=== PATIENT | male | born 1980 | race Caucasian/White ===

== ENCOUNTER 2017-07-30 15:54 | Inpatient (IN) ==
[2017-07-30] MEDS ORDERED: VANCOMYCIN 1 GM/NS 1 GM/250 ML IVPB IV ONE (16:03)
[2017-07-30 16:46] LABS: MANUAL DIFF NEEDED? NO
[2017-07-30 16:51] LABS: BASO% 0.1 % (0.0-0.8); EOS# 0.07 X1000 (0.0-0.7); EOS% 0.5 % (0.0-10.0); HEMATOCRIT 38.8 % (42.0-52.0); HEMOGLOBIN 13.1 g/dL (14.0-18.0); IMM GRAN# 0.02 X1000 (0.0-0.04); IMM GRAN% 0.2 % (0.0-0.5); LYMPH# 3.09 X1000 (1.2-3.4); LYMPH% 24.2 % (20.5-51.1); MCH 31.5 PG (27-31); MCHC 33.8 g/dL (33-37); MCV 93.3 FL (81-99); MONO% 7.1 % (1.7-9.3); MPV 9.3 FL (7.4-10.4); NEUT% 67.9 % (42.2-75.2); PLT 277 X1000 (130-400); RBC 4.16 XMIL (4.7-6.1)
[2017-07-30] MEDS ORDERED: NORCO-10 PO ONE (16:56)
[2017-07-30] MEDS ORDERED: ZOFRAN ODT PO ONE (16:56)
[2017-07-30 17:08] LABS: AGAP 15; ALBUMIN 3.9 g/dL (3.5-5.0); ALKALINE PHOSPHATASE 71 U/L (32-122); BUN 9 mg/dL (8-22); CALCIUM 8.8 mg/dL (8.8-10.2); CHLORIDE 93 mmol/L (98-107); COSMO 265; GOT 11 U/L (10-34); GPT 7 U/L (10-44); POTASSIUM 3.6 mmol/L (3.5-5.1); SODIUM 133 mmol/L (136-145); TCO2 25 mmol/L (25-35); TOTAL PROTEIN 7.3 g/dL (6.3-8.3)
--- NOTE | 2017-07-30 17:24 | PROVIDER DOCUMENTATION ---
This chart was entered by Chela Cantu Scribe, acting as scribe for Hadley Hernandez PA. HPI-Rash/Wound/ReCheck - General Chief Complaint: Extremity Pain Stated Complaint: LT HAND/ARM INFECTION Time Seen by Provider: 07/30/17 15:59 Source: patient Allergies/Adverse Reactions: Allergies Allergy/AdvReac Type Severity Reaction Status Date / Time ciprofloxacin [From Cipro] Allergy Unknown Verified 07/30/17 16:40 ciprofloxacin HCl * Allergy Unknown Verified 07/30/17 16:40 [From Cipro] doxycycline Allergy DIARRHEA Verified 07/30/17 16:40 erythromycin base Allergy Unknown Verified 07/30/17 16:40 Penicillins Allergy RASH Verified 07/30/17 16:40 Home Medications: Home Medication List Medication Instructions Recorded Confirmed Last Taken Type Sulfamethoxazole/Trimethoprim 1 tab PO DAILY 07/30/17 07/30/17 07/30/17 History [Bactrim Ds Tablet] - History of Present Illness-Dermatology Nature of Presenting Problem: Patient is a 36 year old male who presents in the ED with complaints of cat bite /scratch. He states he was playing with a cat two weeks ago when he felt a puncture to his left hand, and states he is unsure if he was bitten or scratched by the cat. He also states he has had increasing swelling and redness to the site of the wound since onset, and states he went to a doctor's office prior to arrival in ED but was instructed to come to the ED. He reports he has had streaking up to his left armpit. Location: reports: upper extremity (left hand) Quality: reports: painful Severity: reports: moderate, severe Onset/Duration: reports: abrupt (2 weeks ago) Timing: reports: still present, changing over time, getting worse Context/Associated Symptoms: reports: other (redness/swelling/pain at site of cat bite) Identifiable cause?: Yes Exposure: denies: unknown cause, allergen exposure, enviromental allergen exposure, common food allergen exposure, illness exposure, irritant gases exposure, new medication, mold exposure, smoke exposure, toxic exposure, other Modifying Factors: worse with: antihistamine, calamine lotion, prednisone, scratching, topical steriods, other Locality of Occurance: Home Similar Symptoms Previously?: No Recently seen or treated by another doctor?: No Review of Systems - Adult - REVIEW OF SYSTEMS - ADULT Constitutional: reports: no symptoms reported Eyes: reports: no symptoms reported Ears, Nose, Mouth & Throat: reports: no symptoms reported Cardiovascular: reports: no symptoms reported Respiratory: reports: no symptoms reported Gastrointestinal: reports: no symptoms reported Genitourinary: reports: no symptoms reported Musculoskeletal: reports: no symptoms reported Integumentary: reports: see HPI, other (cat bite/scratch to left hand with swelling/erythema/streaking) Neurological: reports: no symptoms reported Psychiatric: reports: no symptoms reported Endocrine: reports: no symptoms reported Hematologic/Lymphatic: reports: no symptoms reported Allergic/Immunologic: reports: no symptoms reported All Other Systems: Reviewed and Negative Past History - Adult - PAST MEDICAL HISTORY-ADULT Review of Records: reports: Nursing Assessment Review, Medications Reviewed Major Childhood Illnesses: reports: denies history Cardiovascular: reports: denies history Respiratory: reports: asthma Gastrointestinal: reports: denies history Obstetrical/Gynecological: reports: denies history Genitourinary: reports: denies history Musculoskeletal: reports: denies history Neurological: reports: denies history Psychiatric: reports: denies history Endocrine/Immune: reports: denies history Other Conditions: reports: denies history - PRIOR SURGERIES/PROCEDURES Surgical/Procedure History: reports: other (dental extractions) - IMMUNIZATION STATUS Childhood Immunizations: See Nurse Assessment Flu Vaccine: See Nurse Assessment - FAMILY HISTORY Family History: reviewed, not pertinent - SOCIAL HISTORY Smoking: cigarettes, less than 1 pack/day Substance Use: none/never Alcohol Use Frequency: never Living Situation: family Physical Exam-General - PHYSICAL EXAM-ADULT Initial Vital Signs Reviewed: Yes - CONSTITUTIONAL General Appearance: alert, no apparent distress - EYES Eyes: PERRL/EOMI, pink conjunctivae - HEAD, EARS, NOSE, MOUTH & THROAT HENMT: normocephalic/atraumatic, moist mucous membranes - NECK Neck: full range of motion, supple - RESPIRATORY Respiratory: chest non-tender, lungs clear, normal breath sounds, no pleuratic chest pain, no respiratory distress, no accessory muscle use - CARDIOVASCULAR Cardiovascular: regular rate, rhythm, no edema, no gallop, no JVD, no murmur - GASTROINTESTINAL (ABDOMEN) Abdominal Exam: non tender, soft, no organomegaly, no pulsatile mass - LYMPHATIC Lymphatic: no adenopathy - MUSCULOSKELETAL Back Exam: normal inspection, no CVA tenderness, no vertebral tenderness Extremity: normal range of motion, non-tender, normal gait, normal inspection - SKIN Integumentary: normal color, normal turgor, warm/dry, other (left dorsal second finger first joint with significant swelling, erythema, and streaking from site extending up to patient's left axilla area) - NEUROLOGIC Neurologic: grossly normal, no motor/sensory deficits - PSYCHIATRIC Psych/Mental Status: normal mood/affect, oriented x 3 Progress - PLAN OF CARE/RESULTS Progress/Plan/Lab Results: Vital Signs - 8 hr 07/30/17 15:57 Temperature 99.6 F Pulse Rate 86 Respiratory Rate 16 Blood Pressure 128/74 O2 Sat by Pulse Oximetry 98 Laboratory Results - last 24 hr 07/30/17 07/30/17 16:33 16:33 WBC 12.76 H RBC 4.16 L Hgb 13.1 L Hct 38.8 L MCV 93.3 MCH 31.5 H MCHC 33.8 RDW Std Deviation 13.1 Plt Count 277 MPV 9.3 Immature Gran % (Auto) 0.2 Neut % (Auto) 67.9 Lymph % (Auto) 24.2 Rush % (Auto) 7.1 Eos % (Auto) 0.5 Baso % (Auto) 0.1 Immature Gran # (Auto) 0.02 Neut # (Auto) 8.67 H Lymph # (Auto) 3.09 Rush # (Auto) 0.90 H Eos # (Auto) 0.07 Baso # (Auto) 0.01 Sodium 133 L Potassium 3.6 Chloride 93 L Carbon Dioxide 25 Anion Gap 15 BUN 9 Creatinine 0.7 Estimated GFR/1.73 m2 > 60 BUN/Creatinine Ratio 13 Glucose 95 Calculated Osmolality 265 Calcium 8.8 Total Bilirubin 0.60 AST 11 ALT 7 L Alkaline Phosphatase 71 Total Protein 7.3 Albumin 3.9 Globulin 3.4 Albumin/Globulin Ratio 1.1 Orders Category Date Time Status Saline Loc NOW Care 07/30/17 16:02 Active BLOOD CULTURE [BLDCUL] Stat Lab 07/30/17 16:33 Ordered CBC WITH ELECTRONIC DIFF [HEME] Stat Lab 07/30/17 16:33 Completed COMPREHENSIVE METABOLIC PANEL [CHEM] Stat Lab 07/30/17 16:33 Completed Hydrocodone/APAP 10 mg/325 mg [[place]-10] Med 07/30/17 16:56 Discontinued 1 each PO NOW ONE Ondansetron Odt [Zofran Odt] Med 07/30/17 16:56 Discontinued 4 mg PO NOW ONE Vancomycin 1 gm/Ns Med 07/30/17 16:03 Discontinued 1 gm in 250 ml IV NOW Will admit pt for cellulitis. Dr. Stewart in agreement c plan. Result Diagrams: 07/30/17 16:33 07/30/17 16:33 - CONSULTS/PCP/HOSPITALIST Notification #1 *Consult/PCP/Hospitalist*: Hospitalist Service Time Discussed: 17:23 Consult Disposition: Admit Departure - Departure Date of Disposition Decision: 07/30/17 Time of Disposition Decision: 17:24 DIAGNOSIS: Cat bite involving extremity Cellulitis Qualifiers: Site of cellulitis: extremity Site of cellulitis of extremity: upper extremity Laterality: left Qualified Code(s): L03.114 - Cellulitis of left upper limb Disposition: ADMITTED INPATIENT 09 Certified Medical Emergency: Emergent Condition: Stable Referrals and Follow-Ups: None,PCP [Primary Care Provider] - Discharge Education: Smoking Cessation, Tips for Success - Critical Care Note This patient required my direct & personal management of CC.: No Attestation - Physician/ SANJAY Attestation Patient care was provided by Advanced Practice Provider:: Yes Advanced Practice Provider:: Hadley Hernandez Advanced Practice Provider documentation review:: The Mid-level provider documentation, treatment plan and medical decision making was reviewed by the physician who agrees with all treatment and medical decision making by the MLP. The physician spent face to face time with patient:: No Advanced Practice Provider documentation review:: Supervising physician onsite and consulted in the evaluation and care of this patient. The physician did not have a face to face encounter with the patient. This chart was documented by the indicated scribe, (Chela Cantu Scribe) and accurately reflects the services I performed and decisions made by me, Hadley Hernandez PA, as attested by the provider's signature.
[2017-07-30] MEDS ORDERED: MORPHINE IV ONE (18:00)
[2017-07-30] MEDS ORDERED: DILAUDID IV ONE (19:18)
[2017-07-30] MEDS ORDERED: DILAUDID ONE (19:23)
[2017-07-30] MEDS ORDERED: ZOFRAN IV PRN (19:27)
[2017-07-30] MEDS ORDERED: VANCOMYCIN IV PER PHARMACY MISC SCH (19:27)
[2017-07-30] MEDS ORDERED: MORPHINE IV PRN (19:27)
--- NOTE | 2017-07-30 20:36 | Diag Imaging Result Doc PS360 ---
HAND 2 VIEWS LEFT - 07/30/2017 INDICATION: cat scratch cellulitis TECHNIQUE: COMPARISON: None FINDINGS: There is diffuse soft tissue edema about the hand. No foreign body or soft tissue calcifications. No soft tissue gas. The bones are intact and normally mineralized. IMPRESSION: Diffuse edema about the hand compatible with cellulitis. Electronically signed by Renny Ortiz 07/30/2017 8:34 PM
[2017-07-30] MEDS ORDERED: SEPTRA DS PO SCH (21:00)
[2017-07-30] MEDS: NICODERM PATCH TD SCH (21:06)
[2017-07-30] MEDS: TORADOL IV SCH (21:06)
[2017-07-30] MEDS: NS 1,000 ML IV SCH (21:06)
--- NOTE | 2017-07-30 21:28 | HISTORY AND PHYSICAL ---
REASON FOR ADMISSION: Left hand swelling and pain. HISTORY OF PRESENT ILLNESS: Mr. Nasir Rivera is a 36-year-old man with no significant past medical history who comes in today complaining of a 3-day history of worsening swelling and pain of his hand and forearm 2 weeks after having his cat scratch him on the dorsum of his left hand. He also complains of a 3-day history of fever, chills, and generalized weakness. No nausea, vomiting, or visual symptoms. No headache, neck stiffness, or cognitive problems. He denies any GI or complaints, arthralgias or joint swelling elsewhere. He states that a few days after the cat had scratched him, he noticed a raised area which was slightly erythematous. On Saturday he said that the prior lesion, which was the size of a dime, doubled and spontaneously ruptured, but no pus emanated from this. Subsequently he then developed swelling of his hand and redness which have progressed on the ventral surface of his left hand. He denies any axillary swelling. REVIEW OF SYSTEMS: A 12-system review was done. Positive findings per HPI. ALLERGIES: Quinolones, doxycycline, penicillin, macrolides. HOME MEDICATIONS: None although he was started on Bactrim today. FAMILY HISTORY: Lung cancer in dad. Atrial fibrillation in dad. Otherwise, nil. SOCIAL HISTORY: Smokes 1 pack a day. Lives with his partner. No plans to quit smoking when I questioned him. No alcohol and illicit drug use. PAST SURGICAL HISTORY: Appendectomy and tonsillectomy. LABORATORY DATA: White count 12,000, hemoglobin and hematocrit 13 and 38, platelets 277 with normal differential. Blood cultures pending. X-ray of his arm is pending. PHYSICAL EXAMINATION: GENERAL: Young man who is not in acute distress. He is alert and oriented to person, place and time with normal mood and affect. VITAL SIGNS: Blood pressure 123. Heart rate 69. Respirations 18. Temperature is 99. He is 100% on room air. HEAD: Normocephalic, atraumatic. EYES: GIL. EOMI. He is anicteric. No pallor. EARS, NOSE, MOUTH, AND THROAT: ENT and oropharyngeal examination are grossly normal. NECK: Supple. No JVD or carotid bruit. No thyromegaly. LYMPH NODES: Lymph node exam is totally negative. No left axillary lymph nodes or left epitrochlear lymph nodes. CHEST: Clear to auscultation. Good air entry both lung arthur. CARDIOVASCULAR: First and second heart sounds heard. No gallops, murmurs, rubs. Rhythm is regular. ABDOMEN: Scaphoid, soft. No tenderness or hepatosplenomegaly. Bowel sounds are normal. RECTAL: Deferred. EXTREMITIES: The patient has impressive swelling of the entire left hand, more so on the dorsum. There is profound erythema on the dorsum of his hand extending to almost the entire ventral surface of his left forearm. It is extremely warm and tender to touch. There are 2 small denuded areas on the dorsum of the left hand just around the area of the metacarpal joint of the left second digit. There is small exudate which is serous in nature. The patient was unable to make a fist. There is edema of the hand and it is confined to that area. Not pitting. It is extremely warm to touch. Otherwise, no edema, clubbing or cyanosis elsewhere. NEUROLOGIC: Intact. SKIN: See above. MUSCULOSKELETAL: Exam is grossly normal. ASSESSMENT: Cellulitis, probable cat scratch disease. This is somewhat unlikely clinically. The patient has no lymphadenopathy. However, duration of the onset of the symptoms could also sway in favor of cat scratch disease. The patient is allergic to multiple medications which could have been beneficial in his treatment. I agree with starting the patient on vancomycin and add on Bactrim to also cover for possibility of cat scratch. Elevate his extremity. NSAIDs for pain control. Consult Dr. London Lo to see him in the morning. Labs will be followed. Have sent off serologies for what they are worth for Bartonella. cc: Jackson Jones MD
[2017-07-30] MEDS: MORPHINE IV PRN (22:20)
[2017-07-31] MEDS: TORADOL IV SCH (01:41)
[2017-07-31] MEDS: MORPHINE IV PRN (04:45)
[2017-07-31 07:15] LABS: HEMATOCRIT 38.3 % (42.0-52.0); HEMOGLOBIN 12.7 g/dL (14.0-18.0); MCHC 33.2 g/dL (33-37); MCV 93.4 FL (81-99); MPV 9.1 FL (7.4-10.4); RBC 4.1 XMIL (4.7-6.1)
[2017-07-31] MEDS: DILAUDID IV PRN ×4 (07:38→19:30)
[2017-07-31 07:49] LABS: AGAP 12; BUN 10 mg/dL (8-22); CALCIUM 9.1 mg/dL (8.8-10.2); CHLORIDE 101 mmol/L (98-107); COSMO 270; POTASSIUM 4.3 mmol/L (3.5-5.1); SODIUM 135 mmol/L (136-145); TCO2 22 mmol/L (25-35)
[2017-07-31] MEDS: NICODERM PATCH TD SCH (08:15)
[2017-07-31] MEDS: ROCEPHIN 2 GM in NS 50 ML IV SCH (08:44)
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
[2017-07-31] MEDS: NS 1,000 ML IV SCH ×2 (09:00→19:25)
[2017-07-31] MEDS: VANCOMYCIN 1.5 GM in NS 500 ML IV SCH ×4 (11:06→23:05)
[2017-07-31] MEDS ORDERED: PRILOSEC PO SCH (13:00)
--- NOTE | 2017-07-31 14:41 | PROGRESS NOTE ---
DATE: 07/31/2017 SUBJECTIVE: The patient reports feeling fine. Reports less reddening and swelling in the left hand. No fever or chills. OBJECTIVE: Vital Signs: Temperature 97.8 degrees, heart rate 63, respiratory rate 16, blood pressure 121/69, O2 saturation 99% on room air. General Examination: This is a 36-year-old male, lying in bed, in no acute distress. HEENT: Head is normocephalic, atraumatic. Anicteric sclerae and pale conjunctivae. Neck: Supple. No jugular venous distention noted. No carotid bruits. Cardiovascular Examination: S1, S2 heard. No murmurs, gallops, or rubs. Regular rate and rhythm. Respiratory Examination: Clear bilaterally to auscultation. No work of breathing or using accessory muscles. Abdomen: Soft, nontender to palpation. Bowel sounds present. No organomegaly. Extremities: Marked swelling of the entire left hand, more noticeable on dorsum, with profound erythema. There is a small exudate, which is serous in nature. Neurological Examination: Patient alert oriented x3. Moves 4 extremities. Cranial nerves 2-12 grossly normal. LABORATORY DATA: White cell count 8.86, hemoglobin 12.5, hematocrit 38.3, platelets 217,000. BMP is normal. ASSESSMENT AND PLAN: Left hand cellulitis. Patient has been started on vancomycin and now he is also on ceftriaxone as per infectious disease specialist, Dr. Lo. We are going to continue following his recommendations. Patient's white franki count is back to normal. He is afebrile. Wound cultures are still pending. cc: Ramana Vo MD
[2017-08-01] MEDS: DILAUDID IV PRN ×6 (02:07→22:03)
[2017-08-01 07:04] LABS: HEMATOCRIT 41.6 % (42.0-52.0); HEMOGLOBIN 13.9 g/dL (14.0-18.0); MCH 31.5 PG (27-31); MCHC 33.4 g/dL (33-37); MCV 94.3 FL (81-99); MPV 9.3 FL (7.4-10.4); RBC 4.41 XMIL (4.7-6.1)
[2017-08-01 07:28] LABS: AGAP 10; BUN 5 mg/dL (8-22); CALCIUM 9.5 mg/dL (8.8-10.2); CHLORIDE 102 mmol/L (98-107); COSMO 274; POTASSIUM 3.9 mmol/L (3.5-5.1); SODIUM 138 mmol/L (136-145); TCO2 26 mmol/L (25-35)
[2017-08-01] MEDS: PATIENT'S OWN MED PO SCH (10:07)
[2017-08-01] MEDS: ROCEPHIN 2 GM in NS 50 ML IV SCH (10:07)
[2017-08-01] MEDS: NICODERM PATCH TD SCH (10:07)
--- NOTE | 2017-08-01 10:49 | PROGRESS NOTE ---
DATE: 08/01/2017 SUBJECTIVE: The patient had a cat scratch to his left hand which caused cellulitis. MEDICATIONS: The patient is receiving IV Rocephin and vancomycin. OBJECTIVE: Vital Signs: Temperature is 98.6 degrees, pulse 64, respirations 15 , blood pressure 107/70. Generally: This is a healthy-appearing young male, who is in no acute distress. Lungs: Clear to auscultation. Cardiovascular: Regular heart rate. Abdomen: Soft and nontender. Extremities: The patient's left hand is less erythematous and less swollen. I can move all of his fingers with minimal pain. LAB AND X-RAY: The CBC for today shows a white count of 7990, hemoglobin 13.9, and platelet count 269,000, creatinine 0.6. GFR is greater than 60. Blood cultures are sterile. ASSESSMENT AND PLAN: The patient has a cellulitis and secondary to a scratch from his cat. I plan to continue his IV antibiotics overnight and then tomorrow morning I think the patient can be discharged on p.o. antibiotics. The patient's only comorbidity is that he has a cat for a pet. cc: London Lo MD MTD
[2017-08-01] MEDS: VANCOMYCIN 1.5 GM in NS 500 ML IV SCH (11:57)
[2017-08-01] MEDS: TORADOL IV PRN ×2 (12:04→19:52)
--- NOTE | 2017-08-01 13:28 | PROGRESS NOTE ---
DATE: 08/01/2017 SUBJECTIVE: Patient reports feeling fine. Denies any fever, chills. Less swelling and reddening in the left hand. OBJECTIVE: Vital Signs: Temperature 98.6 degrees, heart rate 64, respiratory rate 15, blood pressure 107/70, O2 saturation 100% on room air. General examination: This is a 36-year-old male, lying in bed, in no acute distress. HEENT: Head is normocephalic, atraumatic. Neck: Supple. No JVD noted. No carotid bruits. No lymphadenopathy. Cardiovascular: S1, S2 heard. No murmurs, gallops, or rubs. Regular rate and rhythm. Respiratory: Clear bilaterally to auscultation. No work of breathing or using accessory muscles. Abdomen: Soft. Nontender to palpation. Bowel sounds present. No organomegaly. Extremities: Swelling and reddening of the left hand that is definitely getting better. Neurological: Patient is alert and oriented x3. Moves 4 extremities. LABORATORY DATA: Reviewed. ASSESSMENT AND PLAN: Left hand cellulitis. Clinically this patient is doing good. White cell count is back to normal. Reddening and swelling is getting better. As per Dr. Lo' recommendation, we will continue with the antibiotics, in this case vancomycin and ceftriaxone, overnight and tomorrow he can be discharged on oral antibiotics. cc: Ramana Vo MD
[2017-08-01] MEDS: NS 1,000 ML IV SCH ×2 (17:57)
[2017-08-02] MEDS: NS 1,000 ML IV SCH (02:12)
[2017-08-02] MEDS: TORADOL IV PRN (02:15)
[2017-08-02 07:31] LABS: HEMATOCRIT 38.8 % (42.0-52.0); HEMOGLOBIN 13.2 g/dL (14.0-18.0); MCH 32.1 PG (27-31); MCV 94.4 FL (81-99); MPV 9.2 FL (7.4-10.4); RBC 4.11 XMIL (4.7-6.1)
[2017-08-02 07:46] LABS: AGAP 12; BUN 7 mg/dL (8-22); CALCIUM 9.3 mg/dL (8.8-10.2); CHLORIDE 105 mmol/L (98-107); COSMO 280; POTASSIUM 4.2 mmol/L (3.5-5.1); SODIUM 141 mmol/L (136-145); TCO2 24 mmol/L (25-35)
[2017-08-02] MEDS: PATIENT'S OWN MED PO SCH (08:50)
[2017-08-02] MEDS: ROCEPHIN 2 GM in NS 50 ML IV SCH (08:50)
[2017-08-02] MEDS: NICODERM PATCH TD SCH (08:50)
[2017-08-02] MEDS: DILAUDID IV PRN ×2 (09:28→13:54)
--- NOTE | 2017-08-02 10:21 | PROGRESS NOTE ---
DATE: 08/02/2017 PRESENT ILLNESS: Mr. Rivera has a cellulitis to his left hand from a previous cat scratch. MEDICATIONS: He is receiving IV Rocephin and vancomycin at this time. We will continue these until the patient is ready to go home, then he can go home on Ceftin 500mg po bid x11 days.. OBJECTIVE: Vital Signs: Temp is 98.4 degrees, heart rate 52, respiratory rate 20, blood pressure 116/62. He is 100% O2 saturation on room air. General: This is a healthy- appearing young man sitting up in bed, in no acute distress. Lungs: Clear to auscultation. Respirations are even and nonlabored. Cardiovascular: His heart rate is regular. S1, S2 noted. No edema to his lower extremities. He does have trace edema to his left hand. Pulses are palpable bilaterally to his pedal and radial pulses. Abdomen: Soft and nontender. Bowel sounds are heard by auscultation. Extremities: His IV to his right arm is clean, dry and intact with no drainage, redness or edema. His left hand is erythematous with mild edema. He moves all his fingers well with minimal pain. There is an area of abrased skin which is dry and patient states it did drain a little bit last night, some brownish yellow fluid. LABORATORY AND X-RAY: His white count is 6.72. His hemoglobin is 13.2. His platelet count is 260,000. His creatinine is 0.7. His estimated GFR is greater than 60. His random vancomycin last night was 13.70. He has had no imaging reports today. ASSESSMENT AND PLAN: Mr. Rivera has a left hand cellulitis secondary to a cat scratch at home. We will continue his Rocephin and vancomycin. We have put the prescription in the chart for Ceftin 500 mg po bid x11 days. He can follow-up in our office in 2 weeks. COMORBIDITIES: The patient has no significant medical history. He does smoke a pack a day. Dictated by LACEY Baez for London Lo MD cc: LACEY Baez MD [facility]
--- NOTE | 2017-08-02 11:00 | PROGRESS NOTE ---
DATE: 08/02/2017 Based on the data on the patient that my nurse practitioner, Nat Hernandez, gathered and based on my talking to the patient about his illness and treatment, and also based on my physical exam of the patient, I have come up with a treatment program, which my nurse practitioner is dictating. cc: London Lo MD
[2017-08-02 13:47] VITALS: BP 119/75
[2017-08-02] MEDS: VANCOMYCIN 1.5 GM in NS 500 ML IV SCH ×3 (13:53)
--- NOTE | 2017-08-03 12:05 | DISCHARGE SUMMARY ---
ADMISSION DATE: 07/30/2017 DISCHARGE DATE: 08/02/2017 CONSULTATIONS: Dr. London Lo with Infectious Disease. PERTINENT PROCEDURES: Left hand x-ray showed diffuse edema about the hand compatible with cellulitis. DISCHARGE DIAGNOSIS: Left hand cellulitis from a previous cat scratch. The patient will be discharged home on Ceftin 500 mg p.o. b.i.d. for 11 days and follow up with Dr. London Lo in 2 weeks. HOSPITAL COURSE: Mr. Rivera is a 36-year-old gentleman with no significant past medical history who came to the ED complaining of a 3 day history of worsening swelling and pain on his left hand and tian two weeks after having a cat scratch him on the dorsum of his left hand. He complained of a 3 day history of fever, chills, and generalized weakness. He noticed a few days after the cat scratched him that he had a raised area that was slightly erythematous. He said that there was a lesion about the size of a dime and it doubled and then spontaneously ruptured but he did not notice any pus. Subsequently he developed swelling in his hand and redness which progressed on the ventral surface of his left hand. He came to the ED and they did an x-ray of his left hand and it showed diffuse edema about the hand compatible with cellulitis. He was admitted, started on IV vancomycin, and Infectious Disease was consulted. Rocephin was added. Blood cultures showed no growth. He had decreased swelling and redness in his left hand. His white count is back to normal. He denies any more fever or chills since admission. He is appropriate for discharge today. VITAL SIGNS: Temperature is 98.4, heart rate 52, respirations 20, and blood pressure 116/62. O2 is 100% on room air. DISCHARGE DIET: Regular. DISCHARGE MEDICATIONS: 1. Ceftin 500 mg p.o. every 12 hours. 2. Nexium 24 hours 22.3 mg p.o. daily. 3. Bactrim DS 1 tablet p.o. daily. FOLLOW UP: Mr. Rivera is being discharged home with self-care. He will follow up with Dr. London Lo in 2 weeks. He can return to the ED for any worsening of symptoms. This is LACEY Dillon doing a Discharge Summary for Dr. Tiffanie Klein. Dictated by LACEY Dillon for Ramana Vo MD Addendum: Patient seen and examined by myself. Agree with [employer] note. It reflects my assessment and plan. Patient is being discharged in stable conditions for a cellulitis of left hand secondary to cat scratch. He was doing remarkable fine since admission and responded nicely to antibiotics. He will continue with oral antibiotics as per directed by Dr. Lo from [place] and will see him in the office in 2 weeks. cc: Ramana Vo MD [facility]
== END 2017-08-02 15:20 | disposition home or self-care (01) ==
LOC: ED 15:54 → 3N 18:53 → SUATTDRO 18:53
PROVIDERS: ATTEND Internal Medicine